=== PATIENT | female | born 1940 | race Caucasian/White ===

== ENCOUNTER 2017-08-02 02:17 | Emergency (ER) | payer MEDICARE, OTHER ==
[~2017-08-02] VITALS: Ht 160 cm; Wt 102.1 kg
[~2017-08-02 02:17] MED LIST: GLIPIZIDE ER5 MG PO; METOPROLOL SUCC50 MG PO; OMEPRAZOLE40 MG PO; XARELTO20 MG PO
[2017-08-02 03:15] VITALS: BP 126/60
== END 2017-08-02 03:26 | disposition home or self-care (01) ==
LOC: ER 02:17
DX: M79.662 Pain in left lower leg (principal); S80.12XA Contusion of left lower leg, initial encounter; I10 Essential (primary) hypertension; E11.9 Type 2 diabetes mellitus without complications; I25.10 Atherosclerotic heart disease of native coronary artery without angina pectoris; I48.91 Unspecified atrial fibrillation
CPT/HCPCS: 99282

== ENCOUNTER → 2017-10-05 | Day surgery (SDC) | payer MEDICARE ==
[2017-10-04 11:36] LABS: BASOPHILS % 0.3 % (0.0-1.0); EOSINOPHILS # (AUTO) 0.1 (0.0-0.4); EOSINOPHILS % 0.7 % (0.0-6.0); HEMATOCRIT 36.4 % (34.2-44.1); HEMOGLOBIN 11.3 g/dL (12.0-16.0); LYMPHOCYTES # (AUTO) 3.4 (1.0-3.2); MEAN CORPUSCULAR VOLUME 90.1 fL (81-99); MONOCYTES # (AUTO) 0.4 (0.2-0.8); MONOCYTES % 4.1 % (4.4-11.3); NEUTROPHILS # (AUTO) 4.9 (2.1-6.9); NEUTROPHILS % 55.7 % (38.7-80.0); PLATELET COUNT 201 x10e3/uL (140-360); RED BLOOD COUNT 4.04 x10e6/uL (3.6-5.1); RED CELL DISTRIBUTION WIDTH 16.7 % (11.7-14.4)
[2017-10-04 12:00] LABS: ALBUMIN 3.4 g/dL (3.5-5.0); ANION GAP 12.7 mmol/L (8-16); CALCIUM 9.4 mg/dL (8.4-10.2); CHOL/HDL RATIO 2.8 (3.0-3.6); CREATININE, SERUM 1.26 mg/dL (0.57-1.11); POTASSIUM 4.7 mmol/L (3.5-5.1)
[~2017-10-05] VITALS: Ht 160 cm; Wt 103.0 kg
[~2017-10-05] MED LIST changes: +ALLOPURINOL300 MG PO; +AMIODARONE HCL200 MG PO; +CITALOPRAM HBR20 MG PO; +FENTANYL CITRATE/PF 100MCG/2 ML INJ ONE; +IOPAMIDOL 370 MG/ML 200 ML INFUS..BTL INJ ONE; +LIDOCAINE HCL 2% LOCAL 20 ML VIAL ONE; +LISINOPRIL10 MG PO; +MIDAZOLAM HCL 2 MG/2 ML VIAL ONE; +PRAVASTATIN SOD10 MG PO; +SODIUM CHLORIDE 0.9% 1000ML 1,000 ML ONE; +SYMBICORT 16010.2 GM INH; +XARELTO15 MG PO
--- OUTSIDE RECORDS SUMMARY | 2017-10-05 10:05 | XMS REPORT | Continuity of Care Document ---
Author Author [facility] Organization [facility] Address [address] [place] [place] [address] Phone Unavailable Care Team Providers Care Mail Handler Name Role Phone NONSTAFF PCP Unavailable Insurance Providers Guarantor LizarragaCatrinaShara Address [id number] [place], [place] [address] [place] [address] Payer [facility] Policy Number [id number] Subscriber's Name Shara Lizarraga Relationship 18 Self / Same As Patient Group Number [id number] Effective Date 16 Advance Directives Directive Response Recorded Date/Time Does the patient have an advance directive? No 05/03/17 10:59am If yes, is advance directive on file with [facility]? No 05/03/17 10:59am If not on file with [facility] will patient provide a copy? No 05/03/17 10:59am Problems No problem information available. Medications Current Home Medications Medication Dose Units Route Directions Days Qty Instructions Start Date Glipizide (Glipizide Er) 5 Mg Tab.er.24 5 Mg Oral Daily Metoprolol Succinate 50 Mg Tab.er.24h 50 Mg Oral Daily Omeprazole 40 Mg Catrachito. 40 Mg Oral Daily Rivaroxaban (Xarelto) 20 Mg Tablet 20 Mg Oral Daily Social History Social History Problem Response Recorded Date/Time Onset Date Status Hx Substance Use Disorder No 05/04/2017 9:49am Not Applicable Not Applicable Hx Alcohol Use No 05/04/2017 9:49am Not Applicable Not Applicable Smoking Status Start Date Stop Date Never Smoker Hospital Discharge Instructions No hospital discharge instruction information available. Plan of Care Discharge Date 08/02/17 3:26am Disposition HOME, SELF-CARE Condition at Discharge Stable Instructions/Education Provided Anticoagulation Therapy Contusion Forms Provided Work/School Excuse Prescriptions See Medication Section Additional Instructions/Education FOLLOW UP WITH MD TOMORROW TAKE MEDICATIONS PRESCRIBED Functional Status No functional status information available. Allergies, Adverse Reactions, Alerts No known allergies. Immunizations No immunization information available. Vital Signs Acute Vital Signs Vital Response Date/Time Temperature (Fahrenheit) 98.2 degrees F (97.6 - 99.5) 08/02/2017 3:15am Pulse Pulse Rate (adult) 59 bpm (60 - 90) 08/02/2017 3:15am Respiratory Rate 18 bpm (12 - 24) 08/02/2017 3:15am Blood Pressure 126/60 mm Hg 08/02/2017 3:15am Height 5 ft 3 in 08/02/2017 3:02am Weight 225 lb 08/02/2017 3:02am Body Mass Index 39.9 kg/m^2 08/02/2017 3:02am Results Laboratory Results Test Name Result Units Flags Reference Collection Date/Time Result Date/ Time Comments White Blood Count 9.46 x10e3/uL 4.8-10.8 05/03/2017 11:42am 05/03/2017 11:53am Red Blood Count 4.50 x10e6/uL 3.6-5.1 05/03/2017 11:42am 05/03/2017 11: 53am Hemoglobin 12.7 g/dL 12.0-16.0 05/03/2017 11:42am 05/03/2017 11:53am Hematocrit 41.0 % 34.2-44.1 05/03/2017 11:42am 05/03/2017 11:53am Mean Corpuscular Volume 91.1 fL 81-99 05/03/2017 11:42am 05/03/2017 11: 53am Mean Corpuscular Hemoglobin 28.2 pg 28-32 05/03/2017 11:42am 2016 11:53am Mean Corpuscular Hemoglobin Concent 31.0 g/dL 31-35 05/03/2017 11:42am 05/03/2017 11:53am Red Cell Distribution Width 16.5 % H 11.7-14.4 05/03/2017 11:42am 2016 11:53am Platelet Count 242 x10e3/uL 140-360 05/03/2017 11:42am 05/03/2017 11: 53am Neutrophils (%) (Auto) 55.1 % 38.7-80.0 05/03/2017 11:42am 05/03/2017 11:53am Lymphocytes (%) (Auto) 38.2 % 18.0-39.1 05/03/2017 11:42am 05/03/2017 11:53am Monocytes (%) (Auto) 5.4 % 4.4-11.3 05/03/2017 11:42am 05/03/2017 11: 53am Eosinophils (%) (Auto) 0.8 % 0.0-6.0 05/03/2017 11:42am 05/03/2017 11: 53am Basophils (%) (Auto) 0.3 % 0.0-1.0 05/03/2017 11:42am 05/03/2017 11: 53am IM GRANULOCYTES % 0.2 % 0.0-1.0 05/03/2017 11:42am 05/03/2017 11:53am Neutrophils # (Auto) 5.2 2.1-6.9 05/03/2017 11:42am 05/03/2017 11: 53am Lymphocytes # (Auto) 3.6 H 1.0-3.2 05/03/2017 11:42am 05/03/2017 11: 53am Monocytes # (Auto) 0.5 0.2-0.8 05/03/2017 11:42am 05/03/2017 11:53am Eosinophils # (Auto) 0.1 0.0-0.4 05/03/2017 11:42am 05/03/2017 11: 53am Basophils # (Auto) 0.0 0.0-0.1 05/03/2017 11:42am 05/03/2017 11:53am Absolute Immature Granulocyte (auto 0.02 x10e3/uL 0-0.1 05/03/2017 11: 42am 05/03/2017 11:53am Prothrombin Time 32.0 seconds H 11.9-14.5 05/03/2017 11:42am 05/03/2017 12:06pm Prothromb Time International Ratio 2.91 05/03/2017 11:42am 2016 12:06pm Oral Anticoagulant Therapy INR Values: 1. Low Intensity Therapy 1.5 - 2.0 2. Moderate Intensity Therapy 2.0 - 3.0 3. High Intensity Therapy(1) 2.5 - 3.5 4. High Intensity Therapy(2) 3.0 - 4.0 5. Panic Value INR > 5.0 Sodium Level 142 mmol/L 136-145 05/03/2017 11:42am 05/03/2017 12:13pm Potassium Level 4.5 mmol/L 3.5-5.1 05/03/2017 11:42am 05/03/2017 12: 13pm Chloride Level 104 mmol/L 98-107 05/03/2017 11:42am 05/03/2017 12:13pm Carbon Dioxide Level 30 mmol/L H 22-29 05/03/2017 11:42am 05/03/2017 12: 13pm Anion Gap 12.5 mmol/L 8-16 05/03/2017 11:42am 05/03/2017 12:13pm Blood Urea Nitrogen 28 mg/dL H 7-26 05/03/2017 11:42am 05/03/2017 12: 13pm Creatinine 1.45 mg/dL H 0.57-1.11 05/03/2017 11:42am 05/03/2017 12:13pm BUN/Creatinine Ratio 19 6-25 05/03/2017 11:42am 05/03/2017 12:13pm Estimat Glomerular Filtration Rate 35 ML/MIN L 60- 05/03/2017 11:42am 12:13pm Ranges were taken from the National Kidney Disease Education Program and the National [employer] literature. Reference ranges: 60 or greater: Normal 16-59 (for 3 consecutive months): Chronic kidney disease 15 or less: Kidney failure Glucose Level 105 mg/dL 74-118 05/03/2017 11:42am 05/03/2017 12:13pm Calcium Level 9.6 mg/dL 8.4-10.2 05/03/2017 11:42am 05/03/2017 12:13pm Bedside Glucose 100 mg/dL 70-120 05/04/2017 10:26am 05/04/2017 10:33am Meter ID: [id number] Total Bilirubin 0.5 mg/dL 0.2-1.2 05/03/2017 11:42am 05/03/2017 12: 13pm Aspartate Amino Transf (AST/SGOT) 29 IU/L 5-34 05/03/2017 11:42am 05/03 12:13pm Alanine Aminotransferase (ALT/SGPT) 34 IU/L 0-55 05/03/2017 11:42am 09/2016 12:13pm Total Protein 7.3 g/dL 6.5-8.1 05/03/2017 11:42am 05/03/2017 12:13pm Albumin 3.8 g/dL 3.5-5.0 05/03/2017 11:42am 05/03/2017 12:13pm Globulin 3.5 g/dL 2.3-3.5 05/03/2017 11:42am 05/03/2017 12:13pm Albumin/Globulin Ratio 1.1 0.8-2.0 05/03/2017 11:42am 05/03/2017 12: 13pm Alkaline Phosphatase 105 IU/L 40-150 05/03/2017 11:42am 05/03/2017 12: 13pm Procedures No procedure information available. Encounters Encounter Location Arrival/Admit Date Discharge/Depart Date Attending Provider Departed Emergency [facility] 08/02/17 2:17am 3:26am JIGAR DUCKWORTH MD Registered [facility] 05/04/17 10:07am BENJI CAMPO MD
[2017-10-05 10:29] VITALS: BP 157/71
--- NOTE | 2017-10-05 14:24 | Operative Report ---
DATE OF PROCEDURE: October 05, 2017 INDICATIONS: Coronary artery disease, abnormal stress test. PROCEDURES PERFORMED 1. Left heart catheterization, selective coronary angiography. 2. Deployment of right groin Perclose. COMPLICATIONS: None. RECOMMENDATIONS: Medical therapy. Access was obtained in the right femoral artery. A 6-Thai sheath was placed. Diagnostic coronary angiogram revealed minimal coronary artery disease. Excellent flow in all vessels. No significant stenosis or occlusion. No intervention was deemed necessary. The right groin was repaired using Perclose. Patient was discharged home the same day. Job#: [id number]
[2017-10-05 14:28] VITALS: BP 110/55
== END | disposition home or self-care (01) ==
LOC: CATH LAB 10:03
PROVIDERS: ATTEND Internal Medicine Interventional Cardiology
DX: I25.10 Atherosclerotic heart disease of native coronary artery without angina pectoris (principal); R94.39 Abnormal result of other cardiovascular function study; I10 Essential (primary) hypertension; E11.9 Type 2 diabetes mellitus without complications; Z01.812 Encounter for preprocedural laboratory examination
CPT/HCPCS: 36415; 80053; 80061; 85025; 93458; C1725; C1769; J2001; J2250; J7030; Q9967; 36140; 77002